=== PATIENT | male | born 1955 | race Caucasian/White ===

== ENCOUNTER 2017-12-23 09:39 | Day surgery (SDC) | payer OTHER, BC ==
[2017-12-20 12:55] VITALS: BMI 29.5
[~2017-12-23 09:39] MED LIST: LACTATED RINGERS 1,000 ML IV SCH; LIDOCAINE 1% 20 ML VIAL (10MG/ML) FOR IV START INTRADERMA PRN
[2017-12-23 10:05] VITALS: RESP 16; TEMP 98.1
[2017-12-23] MEDS ORDERED: LIDOCAINE 1% INJ 10MG/ML (20 ML MDV) ONE (10:55)
[2017-12-23] MEDS ORDERED: PROPOFOL 10 MG/ML 20 ML VIAL IV ONE (10:55)
--- NOTE | 2017-12-23 11:34 | P.PCN ---
Date of Procedure: 12/23/17 Procedure(s) Performed: Procedure: Esophagogastroduodenoscopy and biopsy. Preoperative diagnosis: Reflux symptoms and dysphagia. Postoperative diagnosis: 1. 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 2. Mild antral gastritis. 3. Biopsies obtained from the duodenum, antrum, GE junction and esophagus. Preparation and sedation: Was provided by anesthesia. Brief clinical history: The patient is a 62-year-old male who has chronic issues with difficulty swallowing certain foods. Usually to solid food. There is history of heartburn depending on what she eats but is not currently on any acid suppressive medications. No weight loss or other alarm symptoms. Procedure: With the patient on his left lateral decubitus position and after informed consent and adequate sedation, I passed the Olympus-GIF 160 video upper endoscope through the cricopharyngeus down the esophagus. GE junction was around 38-39 cm from the incisors and there was a sliding hiatal hernia measuring between 1-2 cm. 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 The distal esophagus showed linear erosions and superficial ulceration consistent with LA grade B distal esophagitis. The esophagus also showed some corrugation and small pseudodiverticulations. There was no impediment to advancing the endoscope into the stomach which was insufflated with air and inspected in detail including the retroflexion in the cardia. There was some mottling and erythema in the antrum but no ulcers or erosions. Pyloric channel, duodenal bulb, post bulbar area and descending duodenum appeared within normal limits. I obtained biopsies from the duodenum, antrum, GE junction and esophagus before the endoscope was withdrawn. The patient tolerated the procedure well. Plan: Will await biopsy results. I would recommend intensive medical therapy and antireflux diet and measures. If the patient remains symptomatic after that and despite obtaining biopsies today at the GE junction in an attempt to break the continuity of the stricture, I would consider repeat endoscopy and dilation once his esophagitis is healed. I will keep you updated on his progress.
[2017-12-23 11:47] VITALS: BP 126/88; PULSE 84
== END 2017-12-23 12:32 | disposition home or self-care (01) ==
LOC: ORWHC2ENDO 09:39
DX: K21.0 Gastro-esophageal reflux disease with esophagitis (principal); K29.70 Gastritis, unspecified, without bleeding; I10 Essential (primary) hypertension; K44.9 Diaphragmatic hernia without obstruction or gangrene; K22.2 Esophageal obstruction; Z88.1 Allergy status to other antibiotic agents; Z87.891 Personal history of nicotine dependence
CPT/HCPCS: 88305; 43239; J2001; J2704